=== PATIENT | female | born 1965 | race Caucasian/White ===

== ENCOUNTER 2019-06-21 12:34 | Outpatient (CLI) | payer OTHER, SELFPAY ==
--- NOTE | 2019-06-21 | US_ITS ---
WS: [id number] ULTRASOUND THYROID TECHNIQUE: Ultrasound of the thyroid. CLINICAL INFORMATION: THYROID NODULE COMPARISON: June 09, 2017 FINDINGS: Thyroid: Right and left thyroid lobes are normal in size and echotexture. Right thyroid lobe: 4.2 cm x 1.4 cm x 1.2 cm No right-sided thyroid nodules. Left thyroid lobe: 4.3 cm x 1.6 cm x 1.0 cm. 2 left thyroid nodules the largest solid lesion measuring 3 x 5 x 6 mm. Smaller hypoechoic lesion dwight suring 2 x 2 x 2 mm Isthmus: Complex lesion measuring 1.7 x 0.8 x 2.1 cm. This is similar in appearance to 2018. Isthmus measures 3.3 mm. Cervical lymphadenopathy: None. US/US thyroid [id number] IMPRESSION: 1. No right thyroid nodules. 2. 2 Left thyroid nodules the largest measuring 3 X 5 x 6 mm. 3. Complex isthmus lesion measuring 1.7 x 0.8 x 2.1 CM. This is similar in wesley earance to previous. 4. Recommend continued annual surveillance.
== END 2019-06-21 12:35 | disposition home or self-care (01) ==
LOC: RADOUTREAD 13:40
PROVIDERS: Family Provider Family Medicine; Visit Provider Family Medicine
DX: Z76.89 Persons encountering health services in other specified circumstances (principal)

== ENCOUNTER 2019-09-06 09:09 | Outpatient (CLI) | payer OTHER, SELFPAY ==
--- NOTE | 2019-09-06 09:30 | MR_ITS ---
WS: [id number] MRI HEAD WITH CONTRAST TECHNIQUE: Sagittal T1, T2 axial, T2 axial FLAIR, axial susceptibility weighted imaging, axial diffus ion weighted images, and coronal T2 images were obtained. Pre and post-T1 axial and post T1 coronal i mages. ADC and FSPGR images. CLINICAL INFORMATION: MENINGIOMA, BRAIN TUMOR PRIMARY COMPARISON: December 25, 2014 FINDINGS: Again seen is the homogeneously enhancing extra-axial lesion involving the right planum sphenoidale n ear the orbital apex measuring 11.0 x 10.0 x 4.3 mm not significantly changed consistent with meningi danielle. Associated dural thickening. No edema in the underlying adjacent right inferior frontal lobe. No rmal pituitary. Normal pituitary infundibulum. Meningioma abuts the right optic nerve unchanged. No v isualized edema in the right optic nerve. No restricted diffusion to suggest acute ischemia. Ventricular system and basal cisterns are patent. Minimal white matter changes. Mild parenchymal volume loss. Normal posterior fossa. Normal vascular f low voids at the skull base. No extra-axial fluid collections. Paranasal sinuses and mastoid air cell s are well aerated. MR/MR head wo/w con [id number] IMPRESSION: 1. Again seen is the right planum sphenoidale meningioma at the orbital apex w hich abuts the prechiasmatic right optic nerve. This is unchanged in size and a ppearance from previous. 2. Normal optic chiasm and pituitary infundibulum. 3. No restricted diffusion to suggest acute ischemia. 4. Mild small vessel changes moderate parenchymal volume loss. 5. No edema involving the right inferior frontal lobe.
== END 2019-09-06 09:10 | disposition home or self-care (01) ==
LOC: RADWPI 09:15
PROVIDERS: Family Provider Family Medicine; PCP Family Medicine; Visit Provider Neurological Surgery
DX: D32.9 Benign neoplasm of meninges, unspecified (principal)
CPT/HCPCS: 70553; A9579

== ENCOUNTER 2019-09-14 14:30 | Outpatient (CLI) | payer OTHER, SELFPAY ==
--- NOTE | 2019-09-14 14:38 | MM_ITS ---
WS: [id number] BILATERAL DIGITAL SCREENING MAMMOGRAPHY WITH CAD CLINICAL INFORMATION: SCREENING HISTORY: Screening mammogram. Breast soreness COMPARISON: October 24, 2017 TECHNIQUE: Bilateral CC and MLO views. FINDINGS: The breasts are composed of nodular heterogeneous fibroglandular density tissue, which can limit the detection of small underlying mass lesions. No suspicious mass, asymmetry, calcifications, or archite ctural distortion. No evidence of malignancy. Scattered benign punctate calcifications. MM/[place] [id number] IMPRESSION: BI-RADS: 2-Benign FOLLOW UP: 1 Year Follow-up Recommend return to annual screening mammography.
== END 2019-09-14 14:31 | disposition home or self-care (01) ==
PROVIDERS: PCP Family Medicine; Visit Provider Family Medicine
DX: Z12.31 Encounter for screening mammogram for malignant neoplasm of breast (principal)
CPT/HCPCS: 77067

== ENCOUNTER 2021-12-28 07:22 | Outpatient (CLI) | payer OTHER, SELFPAY ==
--- NOTE | 2021-12-28 07:36 | XRR_ITS ---
PROCEDURE INFORMATION: Exam: XR Right Hip Exam date and time: 12/28/2021 7:42 AM Age: 56 years old Clinical indication: Hip pain; Right hip; Additional info: R hip pain TECHNIQUE: Imaging protocol: Radiologic exam of the Right hip. Views: 1 view hip with pelvis when performed. COMPARISON: CT abdomen pelvis w con* [id number] 08/21/2016 12:47 PM FINDINGS: Bones/joints: Unremarkable. No acute fracture. Soft tissues: Unremarkable. XR/XR hip RT 2-3V wo/w pel* [id number] IMPRESSION: No acute findings.
== END 2021-12-28 07:23 | disposition home or self-care (01) ==
LOC: RAD 07:24
PROVIDERS: PCP Nurse Practitioner Family; Visit Provider Nurse Practitioner Family
DX: M25.551 Pain in right hip (principal)
CPT/HCPCS: 73502

== ENCOUNTER → 2022-07-19 11:00 | Outpatient (BNVA) | payer OTHER, SELFPAY | PROVIDERS: PCP Nurse Practitioner Family; Visit Provider Internal Medicine Rheumatology | DX: M19.90 Unspecified osteoarthritis, unspecified site (principal); R76.8 Other specified abnormal immunological findings in serum; Z11.59 Encounter for screening for other viral diseases; M25.50 Pain in unspecified joint; D32.9 Benign neoplasm of meninges, unspecified; M35.00 Sjogren syndrome, unspecified; Z79.899 Other long term (current) drug therapy | CPT/HCPCS: 36415; 82306; 86160; 86162; 86200; 86235; 86255; 86376; 86480; 86704; 86800; 86803; 87340 ==

== ENCOUNTER 2023-02-08 12:35 | Oncology outpatient (recurring) (ONCR) | payer OTHER, SELFPAY ==
[2023-02-08 13:45] LABS: Albumin Level 4.4 g/dL (3.5-5.2); Alkaline Phosphatase 56 U/L (35-105); Aspartate Amino Transferase 20 U/L (0-32); Globulin 2.4 g/dL (1.3-4.6); Total Bilirubin 0.4 mg/dL (0.15-1.2); Total Protein 6.8 g/dL (6.6-8.7)
[2023-02-08 13:56] LABS: Alanine Aminotransferase 11 U/L (0-33)
[2023-02-08 14:03] LABS: Folate Level 15.9 ng/mL (4.8-37.3)
== END 2023-03-08 23:59 | disposition home or self-care (01) ==
LOC: ONCMED 12:42
PROVIDERS: PCP Nurse Practitioner Family; Visit Provider Internal Medicine Rheumatology
DX: Z79.899 Other long term (current) drug therapy (principal); M35.00 Sjogren syndrome, unspecified; M25.50 Pain in unspecified joint
CPT/HCPCS: 36415; 80076; 82746; 86140

== ENCOUNTER 2023-07-20 14:31 | Emergency (ER) | payer OTHER, SELFPAY ==
[2023-07-20 14:36] VITALS: BP 121/73; PULSE 125; RESP 18; TEMP 36.6; O2SAT 96
[2023-07-20 15:42] LABS: Basophils % 0.4 %; Eosinophils % 0.4 %; Hematocrit 48.9 % (36-47); Lymphocytes # 1.4 10^3/uL (0.8-4.8); Lymphocytes % 13.5 %; Mean Corpuscular HGB Conc 33.3 g/dL (30-55); Mean Corpuscular Hemoglobin 28.2 pg (27-33); Mean Corpuscular Volume 84.7 fl (85-98); Monocytes # 0.6 10^3/uL (0.2-0.9); Monocytes % 6.2 %; Neutrophils # 8.01 10^3/uL (1.8-7.7); Neutrophils % 79.1 %; Nucleated Red Blood Cells % 0 %; Platelet Count 333 10^3/cmm (157-399); Red Blood Count 5.77 10^6/uL (3.85-5.65); Red Cell Distribution Width 13.3 % (12.1-15.1); White Blood Count 10.13 10^3/uL (3.29-11.43)
[2023-07-20 16:04] VITALS: BP 132/72; PULSE 113; RESP 15; TEMP 36.4; O2SAT 97
[2023-07-20 16:08] LABS: Alanine Aminotransferase 11 U/L (0-33); Albumin Level 4.4 g/dL (3.5-5.2); Alkaline Phosphatase 64 U/L (35-105); Aspartate Amino Transferase 22 U/L (0-32); Carbon Dioxide 24 mmol/L (22-29); Chloride 100 mmol/L (98-107); Globulin 3.3 g/dL (1.3-4.6); Glucose 78 mg/dL (65-115); Lipase 31 U/L (13-60); Sodium 138 mmol/L (136-145); Total Protein 7.7 g/dL (6.6-8.7)
[2023-07-20 16:17] LABS: Blood Urea Nitrogen 14 mg/dL (6-20); Calcium 9.2 mg/dL (8.5-10.5); Creatinine Clr Calc Pharmacy 79.1323; Glomerular Filtration Rate 74.5 mL/min (90-130); Osmolality Calculated 286 mOsm/kg (285-295)
--- NOTE | 2023-07-20 17:34 | ED_ITS ---
HPI - Nausea/Vomiting/Diarrhea 2 General: Chief complaint: Nausea/Vomiting/Diarrhea Stated complaint: vomiting Time Seen by Provider: 07/20/23 17:33 Source: patient Mode of arrival: ambulatory History of Present Illness: 57-year-old female presents emergency ro om with complaint of nausea vomiting began shortly after she took her first dose of Ozempic. She had previously been on another Kl[place] hide. She is taking this for weight loss. She denies any hematemesis or coffee-ground emesis. She has had difficult time keeping down fluids. MD elicited complaint: nausea, vomiting and diarrhea Onset (ago): day(s) Description of vomiting: watery and bilious Associated nausea: Yes Associated abdominal pain: Yes Location of pain: Diffuse Pain consistency: constant Severity: moderate Quality: cramping Exacerbating factors: eating Relieving factors: none Associated symtoms: Reports anorexia, malaise and nausea; Denies altered mental status, anxiety, bloating, change in vision, chest pain, cough, diaphoresis, decreased urine output, dizziness, dysuria, epistaxis, fatigue, fecal incontinence, fevers/chills, headache(s), myalgias, numbness, palpitations, rash, short of breath, syncope, tenesmus, tinnitus or weakness Review of Systems 2 Const: Reports: malaise; Denies: fever(s), chills, fatigue or diaphoresis Eyes: Denies: change in vision ENMT: Denies: tinnitus or epistaxis Card: Denies: chest pain, palpitations or syncope Resp: Denies: dyspnea GI: Reports: abdominal pain, nausea and vomiting; Denies: bloating or fecal incontinence : Denies: dysuria, urinary frequency or urinary urgency Musc: Denies: neck pain or back pain Skin/Breast: Denies: rash Neuro: Denies: headache(s) or dizziness Psych: Denies: anxiety PFSH ED 2 PFSH: Medical History Sjogren's syndrome with inflammatory arthritis High risk medication use Sicca syndrome Polyarthralgia Positive VENKATA (antinuclear antibody) Meningioma DJD (degenerative joint disease) Surgical History S/P CAROL-BSO History of tubal ligation History of appendectomy (2017) Family History Mother Myocardial infarction COPD (chronic obstructive pulmonary disease) Grandmother Myocardial infarction Grandfather Postsurgical cardiac pacemaker in situ Family/Other Stroke Other Cancer Diabetes Family history of premature coronary artery disease Hyperlipidemia Hypertension Lung disease Rheumatoid arthritis Denies family history of Anesthesia complication Bleeding disorder Social History Smoking and tobacco/nicotine status: never used tobacco/nicotine Second hand smoke exposure: No Alcohol intake: current Alcohol intake frequency: holidays/special occasions only Substance/Drug Use: never Adopted: No Caregiver/support person: Yes Lives independently: Yes Household members: spouse Housing: House Marital status: Life Partner service: No Current occupational status: employed Current occupation: [employer] Current occupational exposures/hazards: No Pets and animals: No Leisure activites: exercise Sexually active: Yes Do you think of yourself as: Straight/Heterosexual Current gender identity: Female Rajni/Mu-Ism: Faith Special rajni needs: No Agree to transfusion: No Physical Exam 2 Const: COMMON NORMALS: no acute distress EXAM LIMITATIONS: no altered mental status GENERAL APPEARANCE: cooperative and comfortable O RIENTATION/CONSCIOUSNESS: Yes awake, Yes oriented to person, Yes oriented to place and Yes oriented to time HENMT: COMMON NORMALS: normocephalic, atraumatic and hearing grossly normal bilaterally HEAD & SCALP: normocephalic and atraumatic Resp: COMMON NORMALS: normal respiratory effort, No retractions, No use of accessory muscles and clear to auscultation bilaterally AUSCULTATION: clear to auscultation bilaterally Cardio: COMMON NORMALS: regular rate, regular rhythm and No murmurs present (Cardio) RATE: regular rate RHYTHM: regular rhythm GI: COMMON NORMALS: No hepatosplenomegaly present AUSCULTATION: Yes normoactive bowel sounds PALPATION: Yes Tenderness to palpation present (GI) (diffuse), No Guarding due to palpation present (GI) and Yes No hepatosplenomegaly present Extremity: COMMON NORMALS: normal to inspection, capillary refill normal, no clubbing, cyanosis or edema, no calf tenderness and no pedal edema Neuro: SENSORIUM/ORIENTATION: Yes oriented to person, Yes oriented to place and Yes oriented to time Skin: COMMON NORMALS: no rashes or lesions noted GENERAL SKIN EXAM: no rashes or lesions noted Course 2 Vital Signs: Vital signs: Vital Signs Temperature 97.5 F L 07/20/23 18:26 Pulse Rate 100 07/20/23 19:26 Respiratory Rate 15 07/20/23 18:26 Blood Pressure 112/76 07/20/23 19:26 Pulse Oximetry 96 07/20/23 19:26 Oxygen Delivery Me thod Room Air 07/20/23 19:26 MDM - Nausea/Vomiting/Diarrhea Medical Decision Making Improved with fluids and antiemetics. Discharge home. Promethazine as needed stop Ozempic follow-up with primary care Medical Records I reviewed the patient's medical records. Lab Data I reviewed the patient's lab results. 07/20/23 15:30 07/20/23 15:30 Laboratory Results WBC 10.13 10^3/uL (3.29-11.43) 07/20/23 15:30 RBC 5.77 10^6/uL (3.85-5.65) H 07/20/23 15:30 Hgb 16.30 g/dL (11.27-16.99) 07/20/23 15:30 Hct 48.9 % (36-47) H 07/20/23 15:30 MCV 84.7 fl (85-98) L 07/20/23 15:30 MCH 28.2 pg (27-33) 07/20/23 15:30 MCHC 33.3 g/dL (30-55) 07/20/23 15:30 RDW 13.3 % (12.1-15.1) 07/20/23 15:30 Plt Count 333 10^3/cmm (157-399) 07/20/23 15:30 MPV 10.0 fL (7.4-10.4) 07/20/23 15:30 Neut % (Auto) 79.1 % 07/20/23 15:30 Lymph % (Auto) 13.5 % 07/20/23 15:30 [place] % (Auto) 6.2 % 07/20/23 15:30 Eos % (Auto) 0.4 % 07/20/23 15:30 Baso % (Auto) 0.4 % 07/20/23 15:30 Neut # (Auto) 8.01 10^3/uL (1.8-7.7) H 07/20/23 15:30 Lymph # (Auto) 1.4 10^3/uL (0.8-4.8) 07/20/23 15:30 [place] # (Auto) 0.6 10^3/uL (0.2-0.9) 07/20/23 15:30 Eos # (Auto) 0.0 10^3/uL (0.0-0.8) 07/20/23 15:30 Baso # (Auto) 0.0 10^3/uL (0.0-0.1) 07/20/23 15:30 Nucleated RBC % (auto) 0 % 07/20/23 15:30 Nucleated RBCs # 0.0 /100WBC 07/20/23 15:30 Sodium 138 mmol/L (136-145) 07/20/23 15:30 Potassium 4.0 mmol/L (3.5-5.1) 07/20/23 15:30 Chloride 100 mmol/L (98-107) 07/20/23 15:30 Carbon Dioxide 24 mmol/L (22-29) 07/20/23 15:30 Anion Gap 18.0 (5-19) 07/20/23 15:30 BUN 14 mg/dL (6-20) 07/20/23 15:30 Creatinine 0.8 mg/dL (0.5-0.9) 07/20/23 15:30 GFR Calculation 74.5 mL/min (90-130) L 07/20/23 15:30 Glucose 78 mg/dL (65-115) 07/20/23 15:30 Calculated Osmolality 286 mOsm/kg (285-295) 07/20/23 15:30 Calcium 9.2 mg/dL (8.5-10.5) 07/20/23 15:30 Total Bilirubin 1.0 mg/dL (0.15-1.2) 07/20/23 15:30 AST 22 U/L (0-32) 07/20/23 15:30 ALT 11 U/L (0-33) 07/20/23 15:30 Alkaline Phosphatase 64 U/L (35-105) 07/20/23 15:30 Total Protein 7.7 g/dL (6.6-8.7) 07/20/23 15:30 Albumin 4.4 g/dL (3.5-5.2) 07/20/23 15:30 Globulin 3.3 g/dL (1.3-4.6) 07/20/23 15:30 Lipase 31 U/L (13-60) 07/20/23 15:30 Urine Color Yellow (Yellow) 07/20/23 17:25 Urine Appearance Clear (CLEAR) 07/20/23 17:25 Urine pH 6 (5-7) 07/20/23 17:25 Ur Specific Ashley 1.020 (1.005-1.030) 07/20/23 17:25 Urine Protein Trace (Negative) 07/20/23 17: Urine Glucose (UA) Norm (Normal) 07/20/23 17: Urine Ketones 3+ (Negative) H 07/20/23 17:25 Urine Blood Neg (Negative) 07/20/23 17:25 Urine Nitrate Negative (Negative) 07/20/23 17: Urine Bilirubin 1+ (Negative) H 07/20/23 17:25 Urine Urobilinogen 1 mg/dL (Negative) H 07/20/23 17:25 Ur Leukocyte Esterase Trace (Negative) H 07/20/23 17:25 Urine RBC 0-4 /hpf (0-2) H 07/20/23 17:25 Urine WBC 0-4 /hpf (0-5) H 07/20/23 17:25 Ur Squamous Epith Cells 5-10 /hpf (0-5) H 07/20/23 17:25 Ur Transition Epith Cell Rare /hpf 07/20/23 17:25 Ur Renal Epithelial Cell Rare /hpf 07/20/23 17:25 Amorphous Sediment Not Reportable 07/20/23 17:25 Urine Bacteria Trace /hpf (NONE) 07/20/23 17:25 Urine Mucus 2+ /hpf 07/20/23 17:25 Ur Oval Fat Bodies Rare /hpf 07/20/23 17:25 No radiology studies performed this visit Discharge Plan Discharge Patient Disposition: Home Clinical Impression: Medication side effect Condition: Stable Prescriptions: New promethazine 25 mg tablet 25 mg PO Q6H PRN (Reason: nausea and vomiting) Qty: 20 0RF No Action magnesium oxide 500 mg capsule 500 mg PO DAILY albuterol sulfate [Ventolin HFA] 90 mcg/actuation HFA aerosol inhaler 2 puff inhalation Q6H PRN gabapentin 300 mg capsule 300 mg PO .HS Qty: 30 3RF prednisone 20 mg tablet See Rx Instructions PO .COMPLEX PRN (Reason: joint pain flare) Qty: 30 1RF Rx Instructions: take 1 or 2 tab daily for 3-7 days as needed for arthritis flare PO PRN; hydroxychloroquine 200 mg tablet See Rx Instructions PO DAILY Qty: 135 1RF Rx Instructions: alternate taking 1 today and 2 tomorrow orally daily; pilocarpine HCl 5 mg tablet 5 mg PO TID Qty: 90 3RF Discharge Orders: Discharge ED (Routine); Ordered 07/20/23 Ordered By: Ashok Merritt Referrals: Vika Bai APN [Primary Care Provider] - Discharge Diet: Clear Liquid Discharge Activity: Resume usual activity Patient Instructions: Opioid Safety, Pain Management Activity Restrictions/Additional Instructions: Thank you for choosing [facility] for your healthcare needs today. Please realize this is an emergency room and that we are providing you with a medical screening exam and this may not be complete and all inclusive of all the testing and or work up that you may need to determine your ailment or severity of your illness. It is very important that you follow up as instructed or that you return to the Emergency Department should you have concerns or if your condition changes or worsens in any way. Stop use of the semaglutide until you follow-up with your doctor Coding Level of Care Code ED Patent Prosecution Attorney for Anna Marie Wong
[2023-07-20 17:50] LABS: Add Urine Microscopic? YES; Bilirubin Urine 1+ (Negative); Blood Urine Neg (Negative); Glucose Urine UA Norm (Normal); Ketones Urine 3+ (Negative); Leukocyte Esterase Urine Trace (Negative); Nitrate Urine Negative (Negative); Protein Urine Trace (Negative); Urine Appearance Clear (CLEAR); Urine Color Yellow (Yellow); Urobilinogen Urine 1 mg/dL (Negative); pH Urine 6 (5-7)
[2023-07-20 17:53] LABS: Add Urine Culture? No; Bacteria Urine TRACE /hpf; Mucus Urine 2+ /hpf; Oval Fat Bodies Urine RARE /hpf; RBC Urine 0-4 /hpf (0-2); Renal Epithelial Cells Urine RARE /hpf; Transitional Epi Cells Urine RARE /hpf; WBC Urine 0-4 /hpf (0-5)
[2023-07-20] MEDS: ondansetron 2 mg/ML SDV 2 mL 4 MG IVP (17:53)
[2023-07-20] MEDS: sodium chloride 0.9% 1,000 ML 999 ML IV ×2 (17:54→18:17)
[2023-07-20 18:00] VITALS: BP 128/90; PULSE 80; O2SAT 99
[2023-07-20 18:26] VITALS: BP 128/90; PULSE 80; RESP 15; TEMP 36.4; O2SAT 99
[2023-07-20 19:26] VITALS: BP 112/76; PULSE 100; O2SAT 96
== END 2023-07-20 19:27 | disposition home or self-care (01) ==
PROVIDERS: Nurse Practitioner Family; Emergency Provider Family Medicine; PCP Nurse Practitioner Family
DX: R11.2 Nausea with vomiting, unspecified (principal); T50.995A Adverse effect of other drugs, medicaments and biological substances, initial encounter
CPT/HCPCS: 36415; 80053; 81001; 83690; 85025; 96361; 96374; 99284; J2405; J7030

== ENCOUNTER 2024-03-22 07:42 | Outpatient (CLI) | payer OTHER, SELFPAY ==
--- NOTE | 2024-03-22 07:44 | MM_ITS ---
WS: [id number] Bilateral screening 3D tomosynthesis digital mammogram, 03/22/2024 7:45 AM Clinical Data: SCREENING Comparison: 11/19/2020, 09/14/2019, 10/24/2017, 02/05/2016, 03/26/2014, 11/02/2010. Findings: No spiculated masses or clustered calcifications are seen. There are no secondary signs of carcinoma . MM/MM scr BI tomosynthesis [id number] Impression: Negative bilateral mammogram unchanged. Recommend annual screening mammograms. BIRADS: 1 - Negative FOLLOW UP: 1 Year Follow-up DENSITY: The breasts are heterogeneously dense, which may obscure small masses. The CAD billing checker was used
== END 2024-03-22 07:43 | disposition home or self-care (01) ==
LOC: RAD 07:43
PROVIDERS: PCP Nurse Practitioner Family; Visit Provider Nurse Practitioner Family
DX: Z12.31 Encounter for screening mammogram for malignant neoplasm of breast (principal)
CPT/HCPCS: 77063; 77067

== ENCOUNTER 2025-03-04 16:40 | Outpatient (CLI) | payer SELFPAY ==
[2025-03-04 17:35] LABS: Hematocrit 45.7 % (36-47); Hemoglobin 15.00 g/dL (11.27-16.99); Mean Corpuscular HGB Conc 32.8 g/dL (30-55); Mean Corpuscular Hemoglobin 28.1 pg (27-33); Mean Corpuscular Volume 85.6 fl (85-98); Nucleated Red Blood Cells % 0 %; Platelet Count 287 10^3/cmm (157-399); Red Blood Count 5.34 10^6/uL (3.85-5.65); White Blood Count 7.95 10^3/uL (3.29-11.43)
[2025-03-04 18:20] LABS: Alanine Aminotransferase 12 U/L (0-33); Albumin Level 4.6 g/dL (3.5-5.2); Alkaline Phosphatase 60 U/L (35-105); Anion Gap 14.7 (5-19); Aspartate Amino Transferase 17 U/L (0-32); Blood Urea Nitrogen 16 mg/dL (6-20); Calcium 9.4 mg/dL (8.5-10.5); Carbon Dioxide 25 mmol/L (22-29); Chloride 104 mmol/L (98-107); Ferritin 231 ng/mL (15-150); Follicle Stimulating Hormone 105.0 mIU/mL; Globulin 2.9 g/dL (1.3-4.6); Glucose 95 mg/dL (65-115); Osmolality Calculated 291 mOsm/kg (285-295); Potassium 3.7 mmol/L (3.5-5.1); Sodium 140 mmol/L (136-145); Thyroid Stimulating Hormone 1.94 uIU/mL (0.27-4.20); Total Protein 7.5 g/dL (6.6-8.7); Vitamin B12 693 pg/mL (232-1245)
[2025-03-04 19:10] LABS: Estmated Average Glucose 100; Hemoglobin A1C 5.1 % (4.0-6.0)
[2025-03-04 23:00] LABS: Free T4 Free Thyroxine 1.19 ng/dL (0.82-1.77)
== END 2025-03-04 16:41 | disposition home or self-care (01) ==
PROVIDERS: PCP Nurse Practitioner Family; Visit Provider Nurse Practitioner Family
DX: Z00.00 Encounter for general adult medical examination without abnormal findings (principal); Z79.899 Other long term (current) drug therapy; N95.1 Menopausal and female climacteric states
CPT/HCPCS: 36415; 80053; 82040; 82306; 82607; 82670; 82728; 83001; 83036; 84270; 84403; 84436; 84439; 84443; 84481; 85025; 86376

== ENCOUNTER 2025-04-01 08:14 | Outpatient (CLI) | payer OTHER, SELFPAY ==
--- NOTE | 2025-04-01 08:19 | MM_ITS ---
WS: [id number] BILATERAL 3D TOMOSYNTHESIS DIGITAL SCREENING MAMMOGRAPHY WITH CAD CLINICAL INFORMATION: SCREENING HISTORY: Screening mammogram. No current complaints. COMPARISON: 2023 TECHNIQUE: Bilateral CC and MLO views. FINDINGS: The breasts are composed of heterogeneous fibroglandular density tissue, which can limit the detection of small underlying mass lesions. No suspicious mass, asymmetry, calcifications, or architectural distortion. No evidence of malignancy. Incidental punctate calcifications bilaterally. Vascular calcif ications. Stable nodular LEFT breast tissue. MM/MM [facility] tomosynthesis [id number] IMPRESSION: DENSITY: The breasts are heterogeneously dense, which may obscure small masses. BI-RADS: 2 - Benign FOLLOW UP: 1 Year Follow-up Recommend return to annual screening mammography.
== END 2025-04-01 08:15 | disposition home or self-care (01) ==
LOC: RAD 08:16
PROVIDERS: PCP Nurse Practitioner Family; Visit Provider Nurse Practitioner Family
DX: Z12.31 Encounter for screening mammogram for malignant neoplasm of breast (principal); R92.333 Mammographic heterogeneous density, bilateral breasts; R92.323 Mammographic fibroglandular density, bilateral breasts; R92.1 Mammographic calcification found on diagnostic imaging of breast
CPT/HCPCS: 77063; 77067